=== PATIENT | male | born 1985 | race Hispanic/Latino ===

== ENCOUNTER 2019-07-15 11:13 | Emergency (ER) | payer OTHER ==
[2019-07-15] MEDS ORDERED: KETOROLAC TROMETHAMINE 60 MG/2 ML VIAL ONE (11:55)
[2019-07-15] MEDS ORDERED: DIAZEPAM 5 MG TABLET ONE (11:55)
[2019-07-15] MEDS ORDERED: LIDOCAINE 5% TOPICAL PATCH TP ONE (11:55)
== END 2019-07-15 12:38 | disposition home or self-care (01) ==
LOC: EDH 11:13
DX: M62.830 Muscle spasm of back (principal); M54.2 Cervicalgia; Z72.0 Tobacco use; Z90.49 Acquired absence of other specified parts of digestive tract
CPT/HCPCS: 96372; 99283; J1885